=== PATIENT | female | born 1990 ===

== ENCOUNTER 2017-02-04 23:41 | Emergency (ER) | payer BC, MEDICAID, OTHER ==
[2017-02-04 23:42] VITALS: BMI 20.9
[2017-02-04 23:58] VITALS: BP 106/62; PULSE 98; RESP 16; TEMP 98.2; O2SAT 100
--- NOTE | 2017-02-05 00:26 | ED PDOC ---
- ECG O2 Sat by Pulse Oximetry: 100
--- NOTE | 2017-02-05 00:32 | ED PDOC ---
HPI: Psych/Substance Abuse Time Seen by Provider: 02/05/17 00:02 Chief Complaint (Nursing): Psychiatric Evaluation Chief Complaint (Provider): Depression History Per: Patient History/Exam Limitations: no limitations Onset/Duration Of Symptoms: Worse Since (2x weeks), Other (patient has had depression for many years, has worsened in the past 2x weeks) Current Symptoms Are (Timing): Still Present Suicide/Self Injury Attempted (Context): None Severity: Moderate Associated Symptoms: Anxiety, Depression, Suicidal Thoughts (fleeting). denies : Suicidal Plan Additional Complaint(s): 26 year old female with a pertinent medical history of depression and UTIs presents to the ED with complaints of depression that she has had for many years , but worsened in the past 2x weeks due to many new life events including her young daughter needing leg surgery, her mother being sick, and marital issues. She reports having fleeting suicidal thoughts, but no plan and does not want to commit suicide because of her daughter. She reports that she has taken medication for her depression in the past, but is not on any right now. She denies drinking alcohol, ingesting drugs, and having any hallucinations. She has been admitted to the hospital for depression in the past. PMD: Not provided. Past Medical History Reviewed: Historical Data, Nursing Documentation, Vital Signs Vital Signs: Last Vital Signs Temp 98.2 F 02/04/17 23:51 Pulse 98 H 02/04/17 23:51 Resp 16 02/04/17 23:51 BP 106/62 02/04/17 23:51 Pulse Ox 100 02/05/17 00:26 - Medical History PMH: Asthma, Depression Denies: Diabetes, Hepatitis, HIV, HTN, Chronic Kidney Disease, Seizures, Sexually Transmitted Disease - Surgical History Surgical History: No Surg Hx - Family History Family History: States: Other - Living Arrangements Living Arrangements: With Family - Social History Current smoker - smoking cessation education provided: Yes Alcohol: None Drugs: Denies - Immunization History Hx Tetanus Toxoid Vaccination: No Hx Influenza Vaccination: No Hx Pneumococcal Vaccination: No - Home Medications Home Medications: Ambulatory Orders Medication Instructions Recorded Ibuprofen [Motrin] 600 mg PO Q6H PRN #20 tab 01/08/17 - Allergies Allergies/Adverse Reactions: Allergies Allergy/AdvReac Type Severity Reaction Status Date / Time morphine Allergy RASH Verified 02/04/17 23:51 Review of Systems ROS Statement: Except As Marked, All Systems Reviewed And Found Negative Psych: Positive for: Anxiety, Depression, Suicidal ideation (no plan). Negative for: Other (denies having hallucinations.) Physical Exam - Reviewed Nursing Documentation Reviewed: Yes Vital Signs Reviewed: Yes - Physical Exam Appears: Positive for: Well, Non-toxic, In Acute Distress (mild psychiatric distress) Head Exam: Positive for: ATRAUMATIC, NORMOCEPHALIC Skin: Positive for: Normal Color, Warm, Dry (papular lesions on face consistent with moderate acne) Eye Exam: Positive for: Normal appearance, PERRL Neck: Positive for: Normal, Painless ROM, Supple Cardiovascular/Chest: Positive for: Regular Rate, Rhythm, Chest Non Tender Respiratory: Positive for: Normal Breath Sounds. Negative for: Respiratory Distress Gastrointestinal/Abdominal: Positive for: Normal Exam, Soft. Negative for: Tenderness Back: Positive for: Normal Inspection Extremity: Positive for: Normal ROM. Negative for: Deformity, Swelling Neurologic/Psych: Positive for: Alert, Oriented (3x), Mood/Affect (depressed mood, very anxious affect), Other (pressured speech). Negative for: Motor/ Sensory Deficits - ECG O2 Sat by Pulse Oximetry: 100 (RA) Pulse Ox Interpretation: Normal Medical Decision Making Medical Decision Makin:02 Initial impression: 26 year old female with depression. Initial plan: * Crisis evaluation as ordered * reevaluation Scribe Attestation: Documented by Rosa Marroquin, acting as a scribe for Danyelle Rivas MD. Provider Scribe Attestation: All medical record entries made by the Scribe were at my direction and personally dictated by me. I have reviewed the chart and agree that the record accurately reflects my personal performance of the history, physical exam, medical decision making, and the department course for this patient. I have also personally directed, reviewed, and agree with the discharge instructions and disposition. Disposition - Clinical Impression Clinical Impression: Depression Counseled Patient/Family Regarding: Studies Performed, Diagnosis, Need For Followup - Disposition [facility]] Disposition: Routine/Home Disposition Time: 01:00 Condition: STABLE Instructions: Depression (ED) Print Language: PRYDEINIG
== END 2017-02-05 02:23 | disposition home or self-care (01) ==
LOC: H.ER 23:41
DX: F32.89 Other specified depressive episodes (principal)

== ENCOUNTER 2017-02-22 20:56 | Emergency (ER) | payer SELFPAY ==
[2017-02-22 20:56] VITALS: BMI 20.9
[2017-02-22 21:01] VITALS: BP 103/61; PULSE 91; RESP 16; TEMP 98.3; O2SAT 100
[2017-02-22 21:46] LABS: BARBITURATES, UR NEGATIVE (NEGATIVE); BENZODIAZEPINES, UR NEGATIVE (NEGATIVE); OPIATES, UR NEGATIVE (NEGATIVE); PHENCYCLIDINE, UR NEGATIVE (NEGATIVE)
--- NOTE | 2017-02-22 22:00 | ED PDOC ---
HPI: Psych/Substance Abuse Time Seen by Provider: 02/22/17 21:06 Chief Complaint (Nursing): Psychiatric Evaluation Chief Complaint (Provider): Psychiatric Evaluation History Per: Patient History/Exam Limitations: no limitations Onset/Duration Of Symptoms: Days Current Symptoms Are (Timing): Still Present Associated Symptoms: Depression. denies: Suicidal Thoughts Additional Complaint(s): 26 y/o female presents to the emergency department with a complaint of feeling depressed and stressed because of her sick sister for a while now. Reports it is affecting her daily life because she is not eating well and has a disinterest in many things. Denies taking medications for depression, drug use, suicidal, or homicidal ideation. Past Medical History Reviewed: Historical Data, Nursing Documentation, Vital Signs Vital Signs: Last Vital Signs Temp 98.3 F 02/22/17 20:58 Pulse 91 H 02/22/17 20:58 Resp 16 02/22/17 20:58 BP 103/61 02/22/17 20:58 Pulse Ox 100 02/22/17 20:58 - Medical History PMH: Asthma, Depression Denies: Diabetes, Hepatitis, HIV, HTN, Chronic Kidney Disease, Seizures, Sexually Transmitted Disease - Surgical History Surgical History: No Surg Hx - Family History Family History: States: Unknown Family Hx - Social History Alcohol: None Drugs: Denies - Immunization History Hx Tetanus Toxoid Vaccination: No Hx Influenza Vaccination: No Hx Pneumococcal Vaccination: No - Allergies Allergies/Adverse Reactions: Allergies Allergy/AdvReac Type Severity Reaction Status Date / Time morphine Allergy RASH Verified 02/22/17 20:57 Review of Systems ROS Statement: Except As Marked, All Systems Reviewed And Found Negative Constitutional: Positive for: Other (Not eating well and has a disinterest in life) Psych: Positive for: Depression. Negative for: Suicidal ideation (or homicidal ideation), Other (Drug use) Physical Exam - Reviewed Nursing Documentation Reviewed: Yes Vital Signs Reviewed: Yes - Physical Exam Appears: Positive for: Non-toxic, No Acute Distress Head Exam: Positive for: ATRAUMATIC, NORMAL INSPECTION, NORMOCEPHALIC Skin: Positive for: Normal Color (With diffuse acne scarring), Warm, Dry Eye Exam: Positive for: Normal appearance. Negative for: Conjunctival injection ENT: Positive for: Normal ENT Inspection. Negative for: Pharyngeal Erythema Neck: Positive for: Normal, Supple Cardiovascular/Chest: Positive for: Regular Rate, Rhythm, Chest Non Tender. Negative for: Murmur Respiratory: Positive for: Normal Breath Sounds. Negative for: Accessory Muscle Use, Respiratory Distress Gastrointestinal/Abdominal: Positive for: Normal Exam, Soft. Negative for: Tenderness Back: Positive for: Normal Inspection. Negative for: L CVA Tenderness, R CVA Tenderness Extremity: Positive for: Normal ROM. Negative for: Pedal Edema Neurologic/Psych: Positive for: Alert, Oriented, Mood/Affect (Withdrawn and depressed appearing) - ECG O2 Sat by Pulse Oximetry: 100 (RA) Pulse Ox Interpretation: Normal Medical Decision Making Medical Decision Making: Time: 21:13 Initial impression: Depression Initial plan: --UPreg --Crisis Evaluation As Ordered --Reevaluation 1130PM: Pt. cleared by Crisis w/ dx of depression under Dr. Woodard. Scribe Attestation: Documented by Shayna Guzmán, acting as a scribe for Guicho Damon MD. Provider Scribe Attestation: All medical record entries made by the Scribe were at my direction and personally dictated by me. I have reviewed the chart and agree that the record accurately reflects my personal performance of the history, physical exam, medical decision making, and the department course for this patient. I have also personally directed, reviewed, and agree with the discharge instructions and disposition. Disposition - Clinical Impression Clinical Impression: Depressed - Patient ED Disposition Is Patient to be Admitted: No - Disposition [facility] Disposition: Routine/Home Disposition Time: 23:45 Condition: STABLE Instructions: Depression (ED), Suicide Prevention for Adults (DC) Print Language: DOMINICAN
== END 2017-02-23 00:07 | disposition home or self-care (01) ==
LOC: H.ER 20:56
DX: F32.9 Major depressive disorder, single episode, unspecified (principal)
CPT/HCPCS: 81025; 99282; G0480

== ENCOUNTER 2017-10-04 01:21 | Emergency (ER) | payer BC, MEDICAID, OTHER ==
[2017-10-04 01:21] VITALS: BMI 20.9
[2017-10-04 01:34] VITALS: BP 91/55; PULSE 86; RESP 16; TEMP 98.2; O2SAT 100
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
== END 2017-10-04 03:00 | disposition home or self-care (01) ==
LOC: H.ER 01:21
DX: Z00.00 Encounter for general adult medical examination without abnormal findings (principal); F31.9 Bipolar disorder, unspecified; F41.9 Anxiety disorder, unspecified; J45.909 Unspecified asthma, uncomplicated; M79.7 Fibromyalgia

== ENCOUNTER 2018-01-25 20:04 | Emergency (ER) | payer BC, MEDICAID, OTHER ==
[2018-01-25 20:05] VITALS: BMI 20.9
[2018-01-25 20:36] VITALS: RESP 16
[2018-01-25] MEDS ORDERED: Sodium Chloride 0.9% 1,000 ML IV STA (21:37)
[2018-01-25 21:57] LABS: BASO % 0.3 % (0.0-2.0); EOS # 0.2 K/uL (0.0-0.7); EOS % 1.4 % (0.0-4.0); HEMOGLOBIN 12.3 g/dL (12.0-16.0); LYMPH # 3.1 K/uL (1.0-4.3); LYMPH % 23.5 % (20.0-40.0); MEAN CELL VOLUME 88.4 fl (81.0-99.0); MEAN CORPUSCULAR HEMOGLOBIN 29.2 pg (27.0-31.0); MEAN CORPUSCULAR HGB CONC 33.1 g/dL (33.0-37.0); MEAN PLATELET VOLUME 8.8 fl (7.2-11.7); MONO # 0.8 K/uL (0.0-0.8); MONO % 6.2 % (0.0-10.0); NEUT # 9.2 K/uL (1.8-7.0); NEUT % 68.6 % (50.0-75.0); NRBC % 0.1 % (0.0-0.0); RBC 4.22 Mil/uL (3.80-5.20); RED CELL DISTRIBUTION WIDTH 13.9 % (11.5-14.5); WHITE BLOOD COUNT 13.4 K/uL (4.8-10.8)
[2018-01-25 22:07] LABS: ALBUMIN 4.1 g/dL (3.5-5.0); ALT/SGPT 23 U/L (9-52); AST/SGOT 31 U/L (14-36); BLOOD UREA NITROGEN 16 mg/dl (7-17); CALCIUM 9.4 mg/dL (8.4-10.2); GFR AFRICAN-AMERICAN > 60; GFR NON-AFRICAN AMERICAN > 60
--- NOTE | 2018-01-25 22:28 | ED PDOC ---
"HPI: Abdomen Time Seen by Provider: 01/25/18 20:10 Chief Complaint (Nursing): Abdominal Pain Chief Complaint (Provider): Abdominal Pain History Per: Patient History/Exam Limitations: no limitations Onset/Duration Of Symptoms: Days (x3) Current Symptoms Are (Timing): Still Present Additional Complaint(s): 27 year old female with a past medical history of depression, fibromyalgia, bipolar disorder presents to the ED complaining of suprapubic pain and dysuria, onset three months. Patient states she has been taking antibiotics on and off. In the last three days, patient has been experiencing nausea, vomiting, and subjective fever. Denies hematuria. PMD: None Provided Past Medical History Reviewed: Historical Data, Nursing Documentation, Vital Signs Vital Signs: Last Vital Signs Temp 98.6 F 01/26/18 03:19 Pulse 76 01/26/18 03:19 Resp 16 01/26/18 03:19 BP 100/52 L 01/26/18 03:19 Pulse Ox 99 01/29/18 05:14 - Medical History PMH: Anxiety, Asthma, Bipolar Disorder, Depression, Fibromyalgia, Schizophrenia Denies: HIV, HTN, Chronic Kidney Disease, Seizures, Sexually Transmitted Disease - Surgical History Surgical History: No Surg Hx - Family History Family History: States: Unknown Family Hx - Social History Current smoker - smoking cessation education provided: Yes - Immunization History Hx Tetanus Toxoid Vaccination: No Hx Influenza Vaccination: No Hx Pneumococcal Vaccination: No - Home Medications Home Medications: Ambulatory Orders Medication Instructions Recorded FLUoxetine [Fluoxetine HCl] 20 mg PO DAILY 10/29/17 Ibuprofen [Motrin Tab] 800 mg PO Q12 01/14/18 Nitrofurantoin Macrocrystals 100 mg PO BID #14 cap 01/26/18 [Macrobid] - Allergies Allergies/Adverse Reactions: Allergies Allergy/AdvReac Type Severity Reaction Status Date / Time morphine Allergy RASH Verified 01/14/18 22:46 Review of Systems ROS Statement: Except As Marked, All Systems Reviewed And Found Negative Constitutional: Positive for: Fever (subjective) Gastrointestinal: Positive for: Nausea, Vomiting, Abdominal Pain (suprapubic) Genitourinary Female: Positive for: Dysuria. Negative for: Hematuria Physical Exam - Reviewed Nursing Documentation Reviewed: Yes Vital Signs Reviewed: Yes - Physical Exam Appears: Positive for: Non-toxic, No Acute Distress Head Exam: Positive for: ATRAUMATIC, NORMOCEPHALIC Skin: Positive for: Normal Color, Warm, Dry Eye Exam: Positive for: Normal appearance, EOMI, PERRL ENT: Positive for: Normal ENT Inspection Neck: Positive for: Normal, Painless ROM, Supple Cardiovascular/Chest: Positive for: Regular Rate, Rhythm. Negative for: Murmur Respiratory: Positive for: Normal Breath Sounds Gastrointestinal/Abdominal: Positive for: Normal Exam, Soft, Tenderness (mild suprapubic tenderness) Back: Positive for: Normal Inspection. Negative for: L CVA Tenderness, R CVA Tenderness, Vertebral Tenderness Extremity: Positive for: Normal ROM. Negative for: Pedal Edema, Deformity Neurologic/Psych: Positive for: Alert, Oriented - Laboratory Results Result Diagrams: 01/25/18 21:50 01/25/18 21:50 - ECG O2 Sat by Pulse Oximetry: 99 (RA) Pulse Ox Interpretation: Normal Medical Decision Making Medical Decision Making: Time: 2149 Plan: -- Beta HCG, Quantitative -- CMP -- CBC with differentials -- Sodium Chloride IV 999 mls/hr -- Toradol 30 mg IV -- Zofran Inj 4 mg IV -- Urine C&S -- Urinalysis Time: 1:14 --CT abd and pelvis Time: 1:30 --Patient reports feeling better. Noted to have UTI, last urine culture was sensitive to macrobids. Time: 2:39 FINDINGS: Lung bases: Unremarkable. No mass. No consolidation. ABDOMEN: Liver: Unremarkable. Gallbladder and bile ducts: Unremarkable. No calcified stones. No ductal dilation. Pancreas: Unremarkable. No ductal dilation. Spleen: Unremarkable. No splenomegaly. Adrenals: Unremarkable. No mass. Kidneys and ureters: Unremarkable. No obstructing or nonobstructing stones. No hydronephrosis. Stomach and bowel: Unremarkable. No obstruction. No mucosal thickening. PELVIS: Appendix: No findings to suggest acute appendicitis. Bladder: Unremarkable. No stones. Reproductive: Unremarkable as visualized. ABDOMEN and PELVIS: Intraperitoneal space: Small free fluid in the pelvis. No free air. Bones/joints: No acute fracture. No dislocation. Soft tissues: Unremarkable. Vasculature: Unremarkable. No abdominal aortic aneurysm. ISAEL MONGE | Preliminary Radiology Report ALTERNATIVE ENERGY ENGINEER (QA) DISCREPANCY? If there is a discrepancy between the preliminary and final interpretation, please notify [facility] via [email or web address]. If you do not have access to our QA portal, call our QA team at [phone] CONFIDENTIALITY STATEMENT This report is intended only for the use of the referring physician, and only in accordance with law, If you received this in error, call [phone] Page 2 of 2 Lymph nodes: Unremarkable. No enlarged lymph nodes. IMPRESSION: Small free fluid in the pelvis. No acute obstructive or inflammatory process in the abdomen or pelvis. pt aware of results of CT. stable for discharge home. Scribe Attestation: Documented by Reyna Bunch, acting as a scribe for Dr. Paul Baptiste. Provider Scribe Attestation: All medical record entries made by the Scribe were at my direction and personally dictated by me. I have reviewed the chart and agree that the record accurately reflects my personal performance of the history, physical exam, medical decision making, and the department course for this patient. I have also personally directed, reviewed and agree with the discharge instructions and disposition. Disposition - Clinical Impression Clinical Impression: UTI (lower urinary tract infection) - Patient ED Disposition Is Patient to be Admitted: No Counseled Patient/Family Regarding: Studies Performed, Need For Followup - Disposition Disposition: Routine/Home Disposition Time: 02:00 Condition: IMPROVED Additional Instructions: follow up with your primary doctor and with the specialist for cystoscopy return to the ED with any worsening or concerning symptoms Prescriptions: Nitrofurantoin Macrocrystals [Macrobid] 100 mg PO BID #14 cap Instructions: Urinary Tract Infection, Adult (DC) Forms: [facility] (Estonian) Print Language: NIUEAN"
[2018-01-25 23:31] LABS: SQUAMOUS EPITHIAL 72 /hpf (0-5); URINE BILIRUBIN NEGATIVE (NEGATIVE); URINE BLOOD NEGATIVE (NEGATIVE); URINE CLARITY CLOUDY (Clear); URINE COLOR YELLOW (YELLOW); URINE GLUCOSE (UA) NEG (Normal); URINE LEUKOCYTE ESTERASE MOD Leu/uL (Negative); URINE PROTEIN 30 mg/dL (NEGATIVE); URINE UROBILINOGEN 0.2-1.0 mg/dL (0.2-1.0)
[2018-01-26 03:20] VITALS: BP 100/52; PULSE 76; TEMP 98.6
--- NOTE | 2018-01-26 10:22 | CT ---
PROCEDURE: CT Abdomen and Pelvis without intravenous contrast HISTORY: Left flank and abdominal pain. COMPARISON: 10/30/2015 CT abdomen and pelvis TECHNIQUE: Unenhanced study. Neither oral nor intravenous contrast administered. Radiation dose: Total exam DLP = 290.47 mGy-cm. This CT exam was performed using one or more of the following dose reduction techniques: Automated exposure control, adjustment of the mA and/or kV according to patient size, and/or use of iterative reconstruction technique. FINDINGS: LOWER THORAX: Unremarkable. LIVER: Unremarkable. No gross lesion or ductal dilatation. GALLBLADDER AND BILE DUCTS: Unremarkable. PANCREAS: Unremarkable. No gross lesion or ductal dilatation. SPLEEN: Unremarkable. ADRENALS: Unremarkable. No mass. KIDNEYS AND URETERS: Unremarkable. No hydronephrosis. No solid mass. VASCULATURE: Unremarkable. No aortic aneurysm. BOWEL: Unremarkable. No obstruction. No gross mural thickening. APPENDIX: Unremarkable. Normal appendix. PERITONEUM: Trace free fluid identified in the pelvis/cul de sac. LYMPH NODES: Unremarkable. No enlarged lymph nodes. BLADDER: Unremarkable. REPRODUCTIVE: Unremarkable. BONES: No acute fracture. OTHER FINDINGS: None. IMPRESSION: No significant or acute findings to account for/ related to the clinical presentation. Additional benign and/or incidental findings described above. Concordant results (preliminary interpretation) provided by [facility]. Procedure Completed: 01:38 Preliminary ([facility]) Report: Dictated and Authenticated: 02:39 Final Interpretation: 10:20
[2018-01-29 05:14] VITALS: O2SAT 99
== END 2018-01-26 03:17 | disposition home or self-care (01) ==
LOC: H.ER 20:04
DX: N39.0 Urinary tract infection, site not specified (principal); F20.9 Schizophrenia, unspecified; F31.9 Bipolar disorder, unspecified; M79.7 Fibromyalgia
CPT/HCPCS: 74176; 80053; 81003; 81025; 84702; 85025; 87086; 96360; 99284; J1885; J2405; J7030

== ENCOUNTER 2018-02-01 16:05 | Emergency (ER) | payer BC ==
[2018-02-01 16:06] VITALS: BMI 20.9
--- NOTE | 2018-02-01 17:38 | ED PDOC ---
HPI: Abdomen Time Seen by Provider: 02/01/18 16:49 Chief Complaint (Nursing): GI Problem Chief Complaint (Provider): back pain History Per: Patient (27 y/o female here with ongoing lower back pain. Patient denies any dysuria/urinary frequency. Denies any fevers/chills. States she was last seen 2 weeks ago and written rx for macrobid but did not complete. Concerned she has had progressing kidney infection.) Past Medical History Reviewed: Historical Data, Nursing Documentation, Vital Signs Vital Signs: Last Vital Signs Temp 97.9 F 02/01/18 16:15 Pulse 78 02/01/18 16:15 Resp 18 02/01/18 16:15 BP 93/57 L 02/01/18 16:15 Pulse Ox 99 02/01/18 16:15 - Medical History PMH: Anxiety, Asthma, Bipolar Disorder, Depression, Fibromyalgia, Schizophrenia Denies: HIV, HTN, Chronic Kidney Disease, Seizures, Sexually Transmitted Disease - Family History Family History: States: Unknown Family Hx - Immunization History Hx Tetanus Toxoid Vaccination: No Hx Influenza Vaccination: No Hx Pneumococcal Vaccination: No - Home Medications Home Medications: Ambulatory Orders Medication Instructions Recorded FLUoxetine [Fluoxetine HCl] 20 mg PO DAILY 10/29/17 Ibuprofen [Motrin Tab] 800 mg PO Q12 01/14/18 Nitrofurantoin Macrocrystals 100 mg PO BID #14 cap 01/26/18 [Macrobid] Naproxen 375 mg PO Q8 PRN #21 tablet 02/01/18 - Allergies Allergies/Adverse Reactions: Allergies Allergy/AdvReac Type Severity Reaction Status Date / Time morphine Allergy RASH Verified 02/01/18 16:14 Review of Systems ROS Statement: Except As Marked, All Systems Reviewed And Found Negative Physical Exam - Reviewed Nursing Documentation Reviewed: Yes Vital Signs Reviewed: Yes - Physical Exam Appears: Positive for: Well, Non-toxic, No Acute Distress Head Exam: Positive for: ATRAUMATIC, NORMAL INSPECTION, NORMOCEPHALIC Skin: Positive for: Normal Color, Warm, DRY Eye Exam: Positive for: EOMI, Normal appearance, PERRL ENT: Positive for: Normal ENT Inspection Neck: Positive for: Normal, Painless ROM Cardiovascular/Chest: Positive for: Regular Rate, Rhythm Respiratory: Positive for: CNT, Normal Breath Sounds Gastrointestinal/Abdominal: Positive for: Normal Exam, Soft Back: Positive for: Normal Inspection Extremity: Positive for: Normal ROM Neurologic/Psych: Positive for: Alert, Oriented - Laboratory Results Urine POC: Negative Urine dip results: Positive for: Leukocyte Esterase (trace), Blood (trace). Negative for: Nitrate, Ketones, Glucose, Bilirubin - ECG O2 Sat by Pulse Oximetry: 99 - Progress ED Course And Treament: The urine cx results from last visit demonstrate no growth. Will await cx results prior to placing on antibiotics. Disposition - Clinical Impression Clinical Impression: Low back strain - Patient ED Disposition Is Patient to be Admitted: No - Disposition Referrals: [facility] [Outside] Disposition: Routine/Home Disposition Time: 17:39 Condition: FAIR Prescriptions: Naproxen 375 mg PO Q8 PRN #21 tablet PRN Reason: Pain, Moderate (4-7) Instructions: Low Back Pain in Adults Forms: [facility] ED School/Work Excuse Print Language: GREEK
[2018-02-01 18:07] VITALS: BP 100/62; PULSE 80; RESP 16; TEMP 97.7; O2SAT 100
== END 2018-02-01 18:05 | disposition home or self-care (01) ==
LOC: H.ER 16:05
DX: M54.5 Low back pain (principal)

== ENCOUNTER 2018-02-20 19:08 | Inpatient (IN) | payer BC ==
[2018-02-20 19:09] VITALS: BMI 20.9
[2018-02-20 19:50] VITALS: O2SAT 100
--- NOTE | 2018-02-20 20:02 | ED PDOC ---
HPI: Psych/Substance Abuse Time Seen by Provider: 02/20/18 19:51 Chief Complaint (Nursing): Psychiatric Evaluation Chief Complaint (Provider): crissi eval History Per: Patient Additional Complaint(s): 27-year-old female presents for crisis evaluation. Patient has been contacting her [facility] fine unhairer for the past 2 weeks stating she is feeling suicidal with no plan. Patient refused to go to [facility] a few days ago for treatment but called her fine unhairer today and stated that she wanted to come to the hospital for evaluation today. Upon arrival patient feels suicidal but does not have plan. She states she has been non-compliant with lexapro and risperdal for the past month. She denies any alcohol or drug use. Past Medical History Reviewed: Historical Data, Nursing Documentation, Vital Signs Vital Signs: Last Vital Signs Temp 98.5 F 02/20/18 19:46 Pulse 92 H 02/20/18 19:46 Resp 16 02/20/18 19:46 BP 105/69 02/20/18 19:46 Pulse Ox 100 02/20/18 19:46 - Medical History PMH: Anxiety, Asthma, Bipolar Disorder, Depression, Fibromyalgia, Schizophrenia - Surgical History Other surgeries: cystoscopy - Family History Family History: States: No Known Family Hx - Living Arrangements Living Arrangements: With Family - Social History Current smoker - smoking cessation education provided: Yes Alcohol: None Drugs: Denies - Home Medications Home Medications: Ambulatory Orders Medication Instructions Recorded FLUoxetine [Fluoxetine HCl] 20 mg PO DAILY 10/29/17 Ibuprofen [Motrin Tab] 800 mg PO Q12 01/14/18 Nitrofurantoin Macrocrystals 100 mg PO BID #14 cap 01/26/18 [Macrobid] Naproxen 375 mg PO Q8 PRN #21 tablet 02/01/18 Cephalexin [Keflex] 500 mg PO QID #28 capsule 02/09/18 - Allergies Allergies/Adverse Reactions: Allergies Allergy/AdvReac Type Severity Reaction Status Date / Time morphine Allergy RASH Verified 02/20/18 19:46 Review of Systems ROS Statement: Except As Marked, All Systems Reviewed And Found Negative Psych: Positive for: Suicidal ideation (with no plan) Physical Exam - Reviewed Nursing Documentation Reviewed: Yes Vital Signs Reviewed: Yes - Physical Exam Appears: Positive for: Well, Non-toxic, No Acute Distress Skin: Positive for: Normal Color. Negative for: Rash Eye Exam: Positive for: Normal appearance Cardiovascular/Chest: Positive for: Regular Rate, Rhythm Respiratory: Positive for: Normal Breath Sounds. Negative for: Wheezing, Respiratory Distress Extremity: Positive for: Normal ROM Neurologic/Psych: Positive for: Alert, Oriented, Mood/Affect (flat), Gait - Laboratory Results Result Diagrams: 02/20/18 21:30 02/20/18 21:30 Urine POC: Negative - ECG O2 Sat by Pulse Oximetry: 100 Pulse Ox Interpretation: Normal - Other Rad CXR X-Ray: Interpreted by Me, Viewed By Me X-Ray Interpretation: no acute finding Medical Decision Making Medical Decision Makin27 year old here for crisis eval Plan: 1:1 observation Crisis eval CBC CMP BAL UDS UA CXR As per crisis counselor and psychiatrist loan services professional, Dr. Mccullough, patient does meet criteria for admission. Patient agrees to stay and signed himself in. Patient is medically stable for psychiatric admission. Disposition - Clinical Impression Clinical Impression: Depression - Patient ED Disposition Is Patient to be Admitted: Yes - Disposition Disposition Time: 22:05 Condition: FAIR Forms: [employer] ([place]) - Pt Status Changed To: Hospital Disposition Of: Inpatient - Admit Certification Admit to Inpatient:: After my assessment, the patient will require hospitalization for at least two midnights. This is because of the severity of symptoms shown, intensity of services needed, and/or the medical risk in this patient being treated as an outpatient.
[2018-02-20 21:37] LABS: BASO % 0.6 % (0.0-2.0); EOS # 0.1 K/uL (0.0-0.7); EOS % 0.9 % (0.0-4.0); HEMOGLOBIN 13.2 g/dL (12.0-16.0); LYMPH # 2.4 K/uL (1.0-4.3); LYMPH % 28.8 % (20.0-40.0); MEAN CELL VOLUME 88.3 fl (81.0-99.0); MEAN CORPUSCULAR HEMOGLOBIN 29.2 pg (27.0-31.0); MEAN CORPUSCULAR HGB CONC 33.1 g/dL (33.0-37.0); MEAN PLATELET VOLUME 9.2 fl (7.2-11.7); MONO # 0.6 K/uL (0.0-0.8); MONO % 6.6 % (0.0-10.0); NEUT # 5.3 K/uL (1.8-7.0); NEUT % 63.1 % (50.0-75.0); RBC 4.52 Mil/uL (3.80-5.20); RED CELL DISTRIBUTION WIDTH 13.7 % (11.5-14.5); WHITE BLOOD COUNT 8.4 K/uL (4.8-10.8)
[2018-02-20 21:53] LABS: ALBUMIN 4.6 g/dL (3.5-5.0); ALT/SGPT 17 U/L (9-52); AST/SGOT 24 U/L (14-36); BLOOD UREA NITROGEN 13 mg/dl (7-17); CALCIUM 9.9 mg/dL (8.4-10.2); GFR AFRICAN-AMERICAN > 60; GFR NON-AFRICAN AMERICAN > 60
[2018-02-20 22:38] LABS: SQUAMOUS EPITHIAL 4 /hpf (0-5); URINE BACTERIA OCC (<OCC); URINE BILIRUBIN NEGATIVE (NEGATIVE); URINE BLOOD SMALL (NEGATIVE); URINE CLARITY CLOUDY (Clear); URINE COLOR YELLOW (YELLOW); URINE GLUCOSE (UA) NEG (Normal); URINE LEUKOCYTE ESTERASE TRACE Leu/uL (Negative); URINE PROTEIN NEGATIVE (NEGATIVE); URINE UROBILINOGEN 0.2-1.0 mg/dL (0.2-1.0)
[2018-02-20 22:50] LABS: BARBITURATES, UR NEGATIVE (NEGATIVE); BENZODIAZEPINES, UR NEGATIVE (NEGATIVE); OPIATES, UR NEGATIVE (NEGATIVE); PHENCYCLIDINE, UR NEGATIVE (NEGATIVE)
[2018-02-20] MEDS ORDERED: DiphenhydrAMINE 50 mg/ml Inj IM PRN (23:13)
[2018-02-20] MEDS ORDERED: Magnesium Hydroxide Susp 30 ml UD PO PRN (23:13)
--- NOTE | 2018-02-20 23:29 | PCM.BM ---
<Ivan Heller - Last Filed: 02/20/18 23:22> Treatment Plan Problems - Problems identified on initial assessmt Hopelessness/Helplessness Date Initiated: 02/20/18 Time Initiated: 23:23 Assessment reference: NA Status: Active Medication nonadherence Date Initiated: 02/20/18 Time Initiated: 23:23 Assessment reference: NA Status: Active Treatment assets and liabiliti Patient Assests: cooperative, physically healthy, negotiates basic needs, cognitively intact Patient Liabilities: relationship conflicts - Milieu Protocol Maintain good personal hygiene: daily Encourage regular showers, daily Remind patient to perform daily oral care, daily Assist patient to perform ADL's Conduct patient checks and document Observation sheet: Q15 minutes Maintain personal safety: every shift Educate patient to report safety concerns to staff, every shift Monitor environment for contraband/sharps Medication safety: Monitor for expected outcome, potential side effects: every shift, Assess barriers to learning: every shift, Assess readiness for medication education: every shift <Ida Ruiz - Last Filed: 02/22/18 16:26> Treatment assets and liabiliti Patient Assests: adapts well, cooperative, educated, motivated, resourceful, ADL independent, negotiates basic needs, good past tx response, cognitively intact Patient Liabilities: live alone (unstable housing as of 03/2018), financial problems (financially supported by daughters father/limited welfare resources), poor support system, relationship conflicts, medical problems Family Contact Family involvement: Famliy/SO not involved Family contact: Patient declines to allow family contact at present - Outside Agency Agency 1 Care involvment: Following patient during stay, Information-sharing, Other Agency contact name: Barby KasieLenny [place] [facility]) Agency contact number: ([phone]) - Goals for Treatment Patient goals for treatment: Patient to continue stabilization on 3NP through medication management and group/supportive therapy to address sxs of depression , improve sleep and organization of thoughts, decrease AH/VH and eliminate SI. Patient to be encouraged to attend groups regularly to promote self-awareness, reality-testing, and improve insight, compliance, coping skills and self- esteem. Patient to be provided with referral for appropriate level of aftercare to reduce risk of future hospitalizations and ensure safety in the community. Discharge/Continuing Care - Education Needs Education Needs: Patient Medication, Patient Diagnosis/Disease Process, Patient Coping Skills, Patient Anger Management skills, Patient Community resources, Patient Aftercare Safety Plan - Discharge Discharge Criteria: Tolerates medication w/o severe side effects, Free of Suicidal thoughts, Normal sleep pattern, Ability to care for self, Reduction of target symptoms (AH/VH, sleep disturbances, sxs of da) Discharge to:: Home, Other <Lacey Mccullough - Last Filed: 02/23/18 11:17> - Diagnosis (1) Bipolar disorder with psychotic features Status: Acute Interventions: Medication management, Individual and group therapy, Psychoeducation 02/23/18 11:18 <Jimmy Goldman - Last Filed: 02/23/18 15:27> Discharge/Continuing Care - Education Needs Education Needs: Patient Medication, Patient Diagnosis/Disease Process, Patient Coping Skills, Patient Anger Management skills, Patient Community resources, Patient Aftercare Safety Plan - Discharge Discharge Criteria: Tolerates medication w/o severe side effects, Free of paranoid thoughts, Free of agitation, Normal sleep pattern, No longer exhibiting s/s of withdrawal Discharge to:: Home - Treatment Team Participation Patient/Family/SO Statement: 02/23/18 15:23 Pt met with in team and she was cooperative and behaviorally controlled. Pt reported that she feels good and would like to leave as she denied any and all psychiatric symptoms. Pt reported that she needs to leave as soon as possible because she needs to care for her daughter. Dr. Mccullough explained that she believes pt requires a week of hospitalization to get the Abilify to an appropriate level, and if pt wishes to leave she can sign a [address] Mccullough will refer to [facility] screening. Screening process explained to pt in her [place] language. Discussed with Family/SO: No Was Patient/Family/SO present at Treatment Team Meeting: Yes
--- NOTE | 2018-02-21 10:25 | RAD ---
Date of service: 02/20/2018 HISTORY: Clearance COMPARISON: No prior. FINDINGS: LUNGS: No active pulmonary disease. PLEURA: No significant pleural effusion identified, no pneumothorax apparent. CARDIOVASCULAR: Normal. OSSEOUS STRUCTURES: No significant abnormalities. VISUALIZED UPPER ABDOMEN: Normal. OTHER FINDINGS: None. IMPRESSION: No active disease.
--- NOTE | 2018-02-21 11:54 | PCM.PSYCH ---
Initial Psychiatric Evaluation - Initial Psychiatric Evaluation Type of Admission: Voluntary Legal Status: Capacity Chief Complaint (in patient's own words): "I can't control my mood." Patient's Reaction to Hospitalization: HPI: 27 yo female w/ history of bipolar vs schizoaffective disorder, presented to the ER after she made acute suicidal threats. On interview, patient appears acutely manic, w/ pressured, rapid and tangential speech and flight of ideas. She denies acute suicidal ideation/plan/intent but reports that she does have intermittent thoughts of killing herself and wishes she weren't alive. She reports that she can not sleep at night and does not believe she sleeps more than 3 hours/night. She also reports lack of interest in activities. She reports that her mood fluctuates and she can not control her mood. She reports that she see shadows intermittently and also has auditory hallucinations ; last heard 4 days ago, of laughter, people talking and sounds, such as people walking around. She has been non-compliant with treatment and medications and can not recall what she was previously prescribed. PPHx: H/o bipolar vs schizoaffective disorder; does not recall her past medications; as per chart she has been treated w/ Risperdal and Lexapro in the past. PMHx: As per patient- Lyme Disease, Arthritis, Fibromyalgia, Gout ALL: Morphine (anaphylaxis) SHx: Daughter currently under the care of the father; denies drugs/etoh; smokes 5 cig/day FHx: Sister w/ Bipolar Disorder; Other sister and mother w/ depression and anxiety Current Medications: Active Medications Generic Name Dose Route Start Last Admin Trade Name Bruceq PRN Reason Stop Dose Admin Acetaminophen 650 mg 02/20/18 23:13 Tylenol 325mg Tab PO Q4 PRN pain level 4-7 Al Hydrox/Mg Hydrox/Simethicone 30 ml 02/20/18 23:13 Maalox Plus 30 Ml PO Q4 PRN Dyspepsia Diphenhydramine HCl 50 mg 02/20/18 23:13 Benadryl IM Q6 PRN Extrapyramidal S/S Unable PO Diphenhydramine HCl 50 mg 02/20/18 23:13 Benadryl PO Q6 PRN Extrapyramidal Symptoms Diphenhydramine HCl 50 mg 02/20/18 23:17 02/21/18 00:09 Benadryl PO 50 mg HS PRN Administration Sleep Haloperidol 5 mg 02/20/18 23:13 Haldol PO Q4 PRN Agitation Haloperidol Lactate 5 mg 02/20/18 23:13 Haldol IM Q4 PRN Agitation, Unable to Take PO Lorazepam 1 mg 02/20/18 23:13 Ativan IM Q8 PRN Anxiety/Agitation,Unable PO Lorazepam 1 mg 02/20/18 23:13 Ativan PO Q8 PRN Anxiety/Agitation Magnesium Hydroxide 30 ml 02/20/18 23:13 Milk Of Magnesia PO HS PRN Constipation Past Psychiatric History - Past Psychiatric History Previous Treatment History: Inpatient Pertinent Medical Hx (Current Medical&Sleep Prob, Allergies): Allergies Allergy/AdvReac Type Severity Reaction Status Date / Time morphine Allergy RASH Verified 02/20/18 19:46 No Known Home Med 02/20/18 Review of Systems - Psychiatric Psychiatric: As Per HPI, Abnormal Sleep Pattern, Anhedonia, Anxiety, Auditory Hallucinations, Change in Appetite, Depression, Difficulty Concentrating, Hallucinations, Irritability, Mood Swings, Suicidal Ideation, Visual Hallucinations Mental Status Examination - Personal Presentation Personal Presentation: Looks stated age - Affect Affect: Other (Labile) - Motor Activity Motor Activity: Psychomotor Agitation - Reliability in Providing Information Reliability in Providing Information: Poor, due to alteration in thoughts - Speech Speech: Tangential, Coherent - Mood Mood: Depressed - Formal Thought Process Formal Thought Process: Loosening of associations, Flight of ideas - Hallucinations/Delusions Additional comments: Denies current AH/VH - Obsessions/Compulsions Obsessions: No Compulsions: No - Cognitive Functions Orientation: Person, Place, Situation, Time Sensorium: Alert Estimate of Intelligence: Average Judgement: Imparied, as evidence by: Poor judgement, Imparied, as evidence by: Lack of insight into illness Memory: Recent intact, as evidence by: Ability to recall events of the day - Risk Risk: Suicidal, Diminished functioning - Strength & Assets Inventory Strength & Assets Inventory: Cooperative DSM 5 DX - DSM 5 DSM 5 Diagnosis: Bipolar Disorder w/ Psychotic Features vs Schizoaffective Disorder - Recommended/Plan of Treatment Treatment Recommendations and Plan of Treatment: Bipolar Disorder w/ Psychotic Features vs Schizoaffective Disorder -Admit to psychiatry unit -Individual and group therapy -Start Abilify 10 mg PO Daily; will titrate as clinically indicated -Medicine consult -Nicotine patch -Disposition planning Projected ELOS: 7-14 days Discharge Plan and Discharge Criteria: Discharge when patient is psychiatrically stable - Smoking Cessation Smoking Cessation Initiated: Yes
--- NOTE | 2018-02-21 16:02 | CP.PCM.HP ---
History of Present Illness - History of Present Illness History of Present Illness: This is a 27 year old female with a pmh of Lyme disease, Arthritis, fibromyalgia , gout, presenting to the ED with acute da and suicidal ideation. She is complaining of back pain at the present. C/o anxiety and depression. No other complaints. Present on Admission - Present on Admission Any Indicators Present on Admission: No History of DVT/PE: No History of Uncontrolled Diabetes: No Review of Systems - Review of Systems Review of Systems: A 12 point review of systems was conducted and found to be negative other than what was mentioned in the HPI. Past Patient History - Infectious Disease Hx of Infectious Diseases: None - Tetanus Immunizations Tetanus Immunization: Unknown - Past Medical History & Family History Past Medical History?: Yes - Past Social History Alcohol: None Drugs: Denies - CARDIAC Hx Cardiac Disorders: No - PULMONARY Hx Respiratory Disorders: Yes Hx Asthma: Yes - NEUROLOGICAL Hx Neurological Disorder: No - HEENT Hx HEENT Problems: No - RENAL Hx Chronic Kidney Disease: No - ENDOCRINE/METABOLIC Hx Endocrine Disorders: No - HEMATOLOGICAL/ONCOLOGICAL Hx Blood Disorders: No - INTEGUMENTARY Hx Dermatological Problems: No - MUSCULOSKELETAL/RHEUMATOLOGICAL Hx Arthritis: Yes - GASTROINTESTINAL Hx Gastrointestinal Disorders: No - GENITOURINARY/GYNECOLOGICAL Hx Genitourinary Disorders: No - PSYCHIATRIC Hx Substance Use: No - SURGICAL HISTORY Hx Surgeries: No - ANESTHESIA Hx Anesthesia: No Meds Allergies/Adverse Reactions: Allergies Allergy/AdvReac Type Severity Reaction Status Date / Time morphine Allergy RASH Verified 02/20/18 19:46 Physical Exam - Additional Findings Additional findings: Physical exam: Constitutional- cooperative, awake, alert Head- NCAT, PERRL Eye- PERRL, EOMI ENT- normal exam, MMM. Neck- normal inspection, supple, no JVD Respiratory- CTAB, no wheezes rales rhonchi Cardiovascular- RRR, +S1, +S2 no MRG GI/Abdominal- normal bowel sounds, soft, no mass, no hsm Skin- warm, dry Extremities Exam- normal capillary refill, normal inspection Neurological Exam- alert, awake, oriented Psych- appears anxious, normal affect Results - Vital Signs Recent Vital Signs: Last Vital Signs Temp 97.2 F L 02/21/18 09:22 Pulse 71 02/21/18 09:22 Resp 18 02/21/18 09:22 BP 90/54 L 02/21/18 09:22 Pulse Ox 100 02/20/18 22:55 - Labs Result Diagrams: 02/20/18 21:30 02/20/18 21:30 Labs: Laboratory Results - last 24 hr 02/20/18 02/20/18 02/20/18 21:30 21:30 21:30 WBC 8.4 RBC 4.52 Hgb 13.2 Hct 39.9 MCV 88.3 MCH 29.2 MCHC 33.1 RDW 13.7 Plt Count 243 MPV 9.2 Neut % (Auto) 63.1 Lymph % (Auto) 28.8 [place] % (Auto) 6.6 Eos % (Auto) 0.9 Baso % (Auto) 0.6 Neut # (Auto) 5.3 Lymph # (Auto) 2.4 [place] # (Auto) 0.6 Eos # (Auto) 0.1 Baso # (Auto) 0.0 Sodium 142 Potassium 3.8 Chloride 103 Carbon Dioxide 26 Anion Gap 17 BUN 13 Creatinine 0.7 Est GFR ( Amer) > 60 Est GFR (Non-Af Amer) > 60 Random Glucose 90 Hemoglobin A1c Calcium 9.9 Total Bilirubin 1.8 H AST 24 ALT 17 Alkaline Phosphatase 60 Total Protein 9.0 H Albumin 4.6 Globulin 4.4 H Albumin/Globulin Ratio 1.0 Triglycerides Cholesterol LDL Cholesterol Direct HDL Cholesterol Thyroxine (T4) TSH 3rd Generation Urine Color Urine Clarity Urine pH Ur Specific [place] Urine Protein Urine Glucose (UA) Urine Ketones Urine Blood Urine Nitrate Urine Bilirubin Urine Urobilinogen Ur Leukocyte Esterase Urine RBC (Auto) Urine Microscopic WBC Ur Squamous Epith Cells Urine Bacteria Urine Opiates Screen Negative Urine Methadone Screen Negative Ur Barbiturates Screen Negative Ur Phencyclidine Scrn Negative Ur Amphetamines Screen Negative U Benzodiazepines Scrn Negative U Oth Cocaine Metabols Negative U Cannabinoids Screen Negative Alcohol, Quantitative < 10 02/20/18 02/21/18 02/21/18 21:30 08:25 08:25 WBC RBC Hgb Hct MCV MCH MCHC RDW Plt Count MPV Neut % (Auto) Lymph % (Auto) [place] % (Auto) Eos % (Auto) Baso % (Auto) Neut # (Auto) Lymph # (Auto) [place] # (Auto) Eos # (Auto) Baso # (Auto) Sodium Potassium Chloride Carbon Dioxide Anion Gap BUN Creatinine Est GFR ( Amer) Est GFR (Non-Af Amer) Random Glucose Hemoglobin A1c 5.1 Calcium Total Bilirubin AST ALT Alkaline Phosphatase Total Protein Albumin Globulin Albumin/Globulin Ratio Triglycerides 68 Cholesterol 145 LDL Cholesterol Direct 80 HDL Cholesterol 41 Thyroxine (T4) 10.0 TSH 3rd Generation 2.22 Urine Color Yellow Urine Clarity Cloudy Urine pH 5.0 Ur Specific [place] 1.024 Urine Protein Negative Urine Glucose (UA) Neg Urine Ketones Negative Urine Blood Small Urine Nitrate Positive H Urine Bilirubin Negative Urine Urobilinogen 0.2-1.0 Ur Leukocyte Esterase Trace Urine RBC (Auto) 3 Urine Microscopic WBC 8 H Ur Squamous Epith Cells 4 Urine Bacteria Occ H Urine Opiates Screen Urine Methadone Screen Ur Barbiturates Screen Ur Phencyclidine Scrn Ur Amphetamines Screen U Benzodiazepines Scrn U Oth Cocaine Metabols U Cannabinoids Screen Alcohol, Quantitative Assessment & Plan - Assessment and Plan (Free Text) Plan: This is a 27 year old female with a pmh of Lyme disease, Arthritis, fibromyalgia , gout, presenting to the ED with suicidal ideation and subsequent admission to voluntary inpatient psychiatry. She is complaining of back pain at the present. C/o anxiety and depression. No other complaints. 1) Depression, Anxiety, with suicidal ideation - management as per psychiatry 2) Schizophrenia history - Management as per psychiatry 3) Fibromyalgia with back pain - Start Motrin PRN - chronic
[2018-02-21] MEDS: Alum-Mag Hydrox-Simethicone Susp (30 mL) PO PRN (20:54)
[2018-02-22] MEDS: Alum-Mag Hydrox-Simethicone Susp (30 mL) PO PRN (04:45)
--- NOTE | 2018-02-22 10:56 | PCM.PYCHPN ---
Psychiatric Progress Note - Psychiatric Progress Note Patient seen today, length of contact: Patient evaluated, case discussed with team, chart reviewed Patient Chief Complaint: "I can't control my mood." Problems Identified/Issues Discussed: Patient reports episodes of vomiting and diarrhea. She reports poor sleep and states that last night she had visual hallucinations of people walking in front of her and gardens. She also report auditory hallucinations of people talking. She continues to have rapid and pressured speech. No SI/HI. No adverse effects to Abilify reported. We discussed continued titration of Abilify. Medication Change: Yes (Increase Abilify to 15 mg PO Daily) Medical Record Reviewed: Yes Consults ordered or reviewed: Medicine consult Mental Status Examination - Cognitive Function Orientation: Person, Place, Situation, Time Memory: Intact Attention: WNL Concentration: WNL Association: WN Fund of Knowledge: [facility] Decription of patient's judgement and insights: Poor I/J - Mood Mood: Neutral - Affect Affect: Other (Labile) - Speech Speech: Pressured - Formal Thought Process Formal Thought Process: Hallucinations, Loosening of associations Psychotic Thoughts and Behaviors: +AH/VH last night - Suicidal Ideation Suicidal Ideation: No - Homicidal Ideation Homicidal Ideation: No Goal/Treatment Plan - Goal/Treatment Plan Need for Continued Stay: Remain at risks for inpatient hospitalization, Discharge may exacerbated symptoms Progress Toward Problem(s) and Goals/Treatment Plan: Bipolar Disorder w/ Psychotic Features vs Schizoaffective Disorder -Individual and group therapy -Increase Abilify to 15 mg PO Daily -Medicine consult -Nicotine patch -Disposition planning Estimated Date of D/C: 02/28/18
--- NOTE | 2018-02-23 09:58 | PCM.PYCHPN ---
Psychiatric Progress Note - Psychiatric Progress Note Patient seen today, length of contact: Patient evaluated, case discussed with team, chart reviewed Patient Chief Complaint: "I can't control my mood." Problems Identified/Issues Discussed: Patient denies current nausea or diarrhea. She continues to have rapid and pressured speech. She denies acute AH/VH. She is calmer and more redirectable. She denies acute SI/HI. No adverse effects to Abilify reported. Medication Change: No Medical Record Reviewed: Yes Consults ordered or reviewed: Medicine consult Mental Status Examination - Cognitive Function Orientation: Person, Place, Situation, Time Memory: Intact Attention: WNL Concentration: WNL Association: WNL Fund of Knowledge: [facility] Decription of patient's judgement and insights: Poor I/J - Mood Mood: Neutral - Affect Affect: Other (Labile) - Speech Speech: Pressured - Formal Thought Process Formal Thought Process: Loosening of associations Psychotic Thoughts and Behaviors: Denies acute AH/VH - Suicidal Ideation Suicidal Ideation: No - Homicidal Ideation Homicidal Ideation: No Goal/Treatment Plan - Goal/Treatment Plan Need for Continued Stay: Remain at risks for inpatient hospitalization, Discharge may exacerbated symptoms Progress Toward Problem(s) and Goals/Treatment Plan: Bipolar Disorder w/ Psychotic Features vs Schizoaffective Disorder -Individual and group therapy -Continue Abilify 15 mg PO Daily -Medicine consult -Nicotine patch -Disposition planning Estimated Date of D/C: 02/28/18
--- NOTE | 2018-02-24 09:54 | PCM.PYCHPN ---
Psychiatric Progress Note - Psychiatric Progress Note Patient seen today, length of contact: Patient evaluated, case discussed with team, chart reviewed Patient Chief Complaint: "I'm okay" Problems Identified/Issues Discussed: Patient submitted a 48 hour letter, was screened for involuntary admission and not accepted. She retracted the letter and is agreeable to staying in the hospital for a few more days. She is calmer and more redirectable w/ less tangential speech. She denies acute AH/VH. She denies acute SI/HI. No adverse effects to Abilify reported. Medication Change: No Medical Record Reviewed: Yes Consults ordered or reviewed: Medicine consult Mental Status Examination - Cognitive Function Orientation: Person, Place, Situation, Time Memory: Intact Attention: WNL Concentration: WNL Association: WNL Fund of Knowledge: WNL Decription of patient's judgement and insights: Improving I/J - Mood Mood: Neutral - Affect Affect: Other (Labile) - Speech Speech: Appropriate - Formal Thought Process Formal Thought Process: No Impairment Psychotic Thoughts and Behaviors: Denies acute AH/VH - Suicidal Ideation Suicidal Ideation: No - Homicidal Ideation Homicidal Ideation: No Goal/Treatment Plan - Goal/Treatment Plan Need for Continued Stay: Remain at risks for inpatient hospitalization, Discharge may exacerbated symptoms Progress Toward Problem(s) and Goals/Treatment Plan: Bipolar Disorder w/ Psychotic Features vs Schizoaffective Disorder -Individual and group therapy -Continue Abilify 15 mg PO Daily -Medicine consult -Nicotine patch -Disposition planning Estimated Date of D/C: 02/27/18
[2018-02-25 09:29] VITALS: RESP 18
--- NOTE | 2018-02-25 16:55 | PCM.PYCHPN ---
Psychiatric Progress Note - Psychiatric Progress Note Patient seen today, length of contact: Patient evaluated, case discussed with team, chart reviewed Patient Chief Complaint: pt still feels depressed with flat affect.pt denies hallucinations .pt reports that linda is helping and wants to go home soon Medication Change: No Medical Record Reviewed: Yes Mental Status Examination - Cognitive Function Orientation: Person, Place, Situation, Time Memory: Intact Attention: WNL Concentration: WNL Association: WNL Fund of Knowledge: WNL - Mood Mood: Neutral - Affect Affect: Other (Labile) - Speech Speech: Appropriate - Formal Thought Process Formal Thought Process: No Impairment - Suicidal Ideation Suicidal Ideation: No - Homicidal Ideation Homicidal Ideation: No Goal/Treatment Plan - Goal/Treatment Plan Need for Continued Stay: Remain at risks for inpatient hospitalization, Discharge may exacerbated symptoms Estimated Date of D/C: 02/27/18
--- NOTE | 2018-02-26 11:16 | PCM.PYCHPN ---
Psychiatric Progress Note - Psychiatric Progress Note Patient seen today, length of contact: Patient evaluated, case discussed with team, chart reviewed Patient Chief Complaint: pt is still withdrawn with flat affect.pt denies hallucinations .pt reports that abilify is helping but still has negative symptoms of psychosis and need further stabilization. Medication Change: No Medical Record Reviewed: Yes Mental Status Examination - Cognitive Function Orientation: Person, Place, Situation, Time Memory: Intact Attention: WNL Concentration: WNL Association: WNL Fund of Knowledge: WNL - Mood Mood: Neutral - Affect Affect: Other (Labile) - Speech Speech: Appropriate - Formal Thought Process Formal Thought Process: No Impairment - Suicidal Ideation Suicidal Ideation: No - Homicidal Ideation Homicidal Ideation: No Goal/Treatment Plan - Goal/Treatment Plan Need for Continued Stay: Remain at risks for inpatient hospitalization, Discharge may exacerbated symptoms Progress Toward Problem(s) and Goals/Treatment Plan: will increase abilify to 20 mg daily to stabilize thr depression and negative symptoms of psychosis. will engage pt in therapy and groups. Estimated Date of D/C: 02/27/18
[2018-02-27 10:22] VITALS: BP 110/63; PULSE 84; TEMP 97.9
--- NOTE | 2018-02-27 10:50 | PCM.PYCHDC ---
Mental Status Examination - Mental Status Examination Orientation: Person, Place, Situation, Time Memory: Intact Mood: Neutral Affect: Broad Speech: Appropriate Attention: WNL Concentration: WNL Association: WNL Fund of Knowledge: WNL Formal Thought Process: No Impairment Description of patient's judgement and insight: Improved I/J Psychotic Thoughts and Behaviors: Denies acute AH/VH Suicidal Ideation: No Current Homicidal Ideation?: No Discharge Summary - Discharge Note Reason for Hospitalization: HPI: 27 yo female w/ history of bipolar vs schizoaffective disorder, presented to the ER after she made acute suicidal threats. On interview, patient appears acutely manic, w/ pressured, rapid and tangential speech and flight of ideas. She denies acute suicidal ideation/plan/intent but reports that she does have intermittent thoughts of killing herself and wishes she weren't alive. She reports that she can not sleep at night and does not believe she sleeps more than 3 hours/night. She also reports lack of interest in activities. She reports that her mood fluctuates and she can not control her mood. She reports that she see shadows intermittently and also has auditory hallucinations ; last heard 4 days ago, of laughter, people talking and sounds, such as people walking around. She has been non-compliant with treatment and medications and can not recall what she was previously prescribed. PPHx: H/o bipolar vs schizoaffective disorder; does not recall her past medications; as per chart she has been treated w/ Risperdal and Lexapro in the past. PMHx: As per patient- Lyme Disease, Arthritis, Fibromyalgia, Gout ALL: Morphine (anaphylaxis) SHx: Daughter currently under the care of the father; denies drugs/etoh; smokes 5 cig/day FHx: Sister w/ Bipolar Disorder; Other sister and mother w/ depression and anxiety Consultations:: List each consultation separately and include: 1. Reason for request. 2. Findings. 3. Follow-up Consultations: Medicine consult Summary of Hospital Course include:: 1. Description of specific treatment plan utilized for patients during their course of treatmen. 2. Summarize the time- course for resolution of acute symptoms and/or regressed behaviors. 3. Describe issues identified and worked on during hospitalization. 4. Describe medication utilized. 5. Describe medical problems identified and treated. 6. Reassessment of suicide risk Summary of Hospital Course: Patient was admitted to the psychiatry unit. Individual and group therapy were provided. Patient was stabilized on Abilify. She denies current AH/VH/SI/HI and no longer exhibits symptoms of da. She is psychiatrically stable for discharge with outpatient psychiatric follow-up. - Diagnosis (1) Bipolar disorder with psychotic features Status: Chronic - Final Diagnosis (DSM 5) Condition upon Discharge: STABLE DSM 5: Bipolar Disorder Disposition: HOME/ ROUTINE Follow-up Treatment Plan: Bipolar Disorder w/ Psychotic Features vs Schizoaffective Disorder -Individual and group therapy -Continue Abilify 15 mg PO Daily -Medicine consult -Nicotine patch -Disposition planning Prescriptions/Medication Reconciliation: ARIPiprazole [Abilify] 15 mg PO DAILY #30 tab Nitrofurantoin Macrocrystals [Macrobid] 100 mg PO Q12 #6 cap - Smoking Cessation Smoking Cessation Medication prescribed: Yes Reason for not providing: Prescribed during admission; declined outpatient prescription - Antipsychotic Medications Pt discharged on 2 or more routine antipsychotic medications: No
== END 2018-02-27 11:00 | disposition home or self-care (01) | DRG 885 ==
LOC: H.ER 19:08 → H.ERHOLD 22:06 → H.PSYCH 23:09
PROVIDERS: ATTEND Psychiatry & Neurology Psychiatry
PROC: GZ51ZZZ Individual Psychotherapy, Behavioral (ICD-10-PCS; 2018-02-21)
PROC: GZHZZZZ Group Psychotherapy (ICD-10-PCS; principal; 2018-02-24)
DX: F31.9 Bipolar disorder, unspecified (principal); R45.851 Suicidal ideations; N39.0 Urinary tract infection, site not specified; F41.9 Anxiety disorder, unspecified; J45.909 Unspecified asthma, uncomplicated; M79.7 Fibromyalgia; Z79.899 Other long term (current) drug therapy; Z81.8 Family history of other mental and behavioral disorders; Z91.14 Patient's other noncompliance with medication regimen; Z91.19 Patient's noncompliance with other medical treatment and regimen; M10.9 Gout, unspecified; M19.90 Unspecified osteoarthritis, unspecified site; M54.9 Dorsalgia, unspecified; F17.200 Nicotine dependence, unspecified, uncomplicated; F20.9 Schizophrenia, unspecified

== ENCOUNTER 2018-02-28 09:04 | Emergency (ER) | payer BC ==
[2018-02-28 09:04] VITALS: BMI 20.9
[2018-02-28 09:18] VITALS: TEMP 98.6
--- NOTE | 2018-02-28 10:08 | ED PDOC ---
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 Patient states she has difficulty walking secondary to pain. Patient had gout x1 year ago but states episode was not this severe. Patient used to treat pain with Gabapentin but states her psychiatrist took her off from it because it didn't mix well her psychiatric medications. She also reports having a fever of 102 x2 weeks ago but has since resolved. She took Naproxen but with no relief. She denies any fever, chills, nausea, vomit, diarrhea or abdominal pain. No further medical complaints. PMD: Dr. Osmel Storey Past Medical History Reviewed: Historical Data, Nursing Documentation, Vital Signs Vital Signs: Last Vital Signs Temp 98.6 F 02/28/18 09:17 Pulse 75 02/28/18 12:21 Resp 16 02/28/18 12:21 BP 125/80 02/28/18 12:21 Pulse Ox 99 02/28/18 16:03 - Medical History PMH: Anxiety, Arthritis, Asthma, Bipolar Disorder, Depression, Fibromyalgia, Schizophrenia Denies: Diabetes, Hepatitis, HIV, HTN, Chronic Kidney Disease, Seizures, Sexually Transmitted Disease Other PMH: ovarian cysts - Surgical History Surgical History: No Surg Hx - Family History Family History: States: Unknown Family Hx - Social History Current smoker - smoking cessation education provided: Yes (Light smoker <10 cigarettes. Not daily) Alcohol: None Drugs: Denies - Immunization History Hx Tetanus Toxoid Vaccination: No Hx Influenza Vaccination: No Hx Pneumococcal Vaccination: No - Home Medications Home Medications: Ambulatory Orders Medication Instructions Recorded ARIPiprazole [Abilify] 15 mg PO DAILY #30 tab 02/26/18 Nitrofurantoin Macrocrystals 100 mg PO Q12 #6 cap 02/26/18 [Macrobid] - Allergies Allergies/Adverse Reactions: Allergies Allergy/AdvReac Type Severity Reaction Status Date / Time morphine Allergy RASH Verified 02/20/18 19:46 Review of Systems ROS Statement: Except As Marked, All Systems Reviewed And Found Negative Constitutional: Negative for: Fever, Chills Gastrointestinal: Negative for: Nausea, Vomiting, Abdominal Pain, Diarrhea Musculoskeletal: Positive for: Other (wrist, hand, knees and ankle pain) Physical Exam - Reviewed Nursing Documentation Reviewed: Yes Vital Signs Reviewed: Yes - Physical Exam Appears: Positive for: Non-toxic, No Acute Distress Head Exam: Positive for: ATRAUMATIC, NORMAL INSPECTION, NORMOCEPHALIC Skin: Positive for: Normal Color, Warm, Dry Eye Exam: Positive for: Normal appearance, EOMI, PERRL Neck: Positive for: Painless ROM, Supple Cardiovascular/Chest: Positive for: Regular Rate, Rhythm. Negative for: Murmur Respiratory: Positive for: Normal Breath Sounds. Negative for: Respiratory Distress Gastrointestinal/Abdominal: Positive for: Normal Exam, Soft. Negative for: Tenderness Back: Positive for: Normal Inspection Extremity: Positive for: Normal ROM (upper and lower extremities). 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 Negative for: Motor/Sensory Deficits, Aphasia, Facial Droop - Laboratory Results Result Diagrams: 02/28/18 10:02 02/28/18 10:02 - ECG O2 Sat by Pulse Oximetry: 99 (RA) Pulse Ox Interpretation: Normal Medical Decision Making Medical Decision Making: Time: 09:16 Initial Impression: Whole body pains r/o fibromyalgia flare Initial Plan: --CMP --CBC w/ differential --Toradol 30 mg IV --Reevaluation 11:45 -Labs reviewed and showed no clinical significant abnormalities. 11:52 -Upon provider reevaluation patient is feeling better, is medically stable, and requires no further treatment in the ED at this time. ----- Scribe Attestation: Documented by Jens Knox, acting as a scribe for Paul Baptiste MD. Provider Scribe Attestation: All medical record entries made by the Scribe were at my direction and personally dictated by me. I have reviewed the chart and agree that the record accurately reflects my personal performance of the history, physical exam, medical decision making, and the department course for this patient. I have also personally directed, reviewed, and agree with the discharge instructions and disposition. Disposition - Clinical Impression Clinical Impression: Whole body pain - Patient ED Disposition Is Patient to be Admitted: No Counseled Patient/Family Regarding: Studies Performed, Diagnosis, Need For Followup - Disposition Referrals: [facility] [Outside] [facility] [Outside] Disposition: Routine/Home Disposition Time: 11:20 Condition: IMPROVED Additional Instructions: follow up with your primary doctor in the clinic 1-2 days return to the ED with any worsening or concerning symptoms Instructions: Acute Pain, Adult (DC) Forms: [employer] (Gambian)
[2018-02-28 10:09] LABS: BASO # 0.1 K/uL (0.0-0.2); BASO % 1.1 % (0.0-2.0); EOS # 0.1 K/uL (0.0-0.7); HEMOGLOBIN 12.9 g/dL (12.0-16.0); LYMPH # 2.1 K/uL (1.0-4.3); LYMPH % 36.5 % (20.0-40.0); MEAN CELL VOLUME 88.1 fl (81.0-99.0); MEAN CORPUSCULAR HEMOGLOBIN 29.6 pg (27.0-31.0); MEAN CORPUSCULAR HGB CONC 33.6 g/dL (33.0-37.0); MEAN PLATELET VOLUME 8.6 fl (7.2-11.7); MONO # 0.5 K/uL (0.0-0.8); MONO % 8.9 % (0.0-10.0); NEUT % 51.5 % (50.0-75.0); NRBC % 0.2 % (0.0-0.0); RBC 4.37 Mil/uL (3.80-5.20); WHITE BLOOD COUNT 5.8 K/uL (4.8-10.8)
[2018-02-28 10:28] LABS: ALB/GLOB RATIO 1.1 (1.0-2.1); ALBUMIN 4.5 g/dL (3.5-5.0); ALT/SGPT 17 U/L (9-52); AST/SGOT 25 U/L (14-36); BLOOD UREA NITROGEN 14 mg/dl (7-17); CALCIUM 9.9 mg/dL (8.4-10.2); GFR AFRICAN-AMERICAN > 60; GFR NON-AFRICAN AMERICAN > 60
[2018-02-28 12:22] VITALS: BP 125/80; PULSE 75; RESP 16
[2018-02-28 12:31] LABS: SQUAMOUS EPITHIAL 3 /hpf (0-5); URINE BACTERIA MANY (<OCC); URINE BILIRUBIN NEGATIVE (NEGATIVE); URINE BLOOD SMALL (NEGATIVE); URINE CLARITY SLIGHTY-CLOUDY (Clear); URINE COLOR YELLOW (YELLOW); URINE GLUCOSE (UA) NEG (Normal); URINE LEUKOCYTE ESTERASE TRACE Leu/uL (Negative); URINE PROTEIN NEGATIVE (NEGATIVE); URINE UROBILINOGEN 0.2-1.0 mg/dL (0.2-1.0)
[2018-02-28 16:03] VITALS: O2SAT 99
== END 2018-02-28 12:21 | disposition home or self-care (01) ==
LOC: H.ER 09:04
DX: R52 Pain, unspecified (principal)
CPT/HCPCS: 80053; 81003; 81025; 85025; 87086; 87181; 96374; 99283; J1885

== ENCOUNTER 2018-03-04 01:32 | Emergency (ER) | payer BC ==
[2018-03-04 01:32] VITALS: BMI 20.9
[2018-03-04 01:37] VITALS: BP 116/80; PULSE 91; RESP 16; TEMP 97; O2SAT 100
== END 2018-03-04 02:05 | disposition left against medical advice (07) ==
LOC: H.ER 01:32
DX: Z02.89 Encounter for other administrative examinations (principal)

== ENCOUNTER 2018-04-14 12:37 | Emergency (ER) | payer BC ==
[2018-04-14 12:37] VITALS: BMI 20.9
--- NOTE | 2018-04-14 13:15 | ED PDOC ---
HPI: Abdomen Time Seen by Provider: 04/14/18 12:42 Chief Complaint (Nursing): Abdominal Pain Chief Complaint (Provider): Abdominal pain History Per: Patient Additional Complaint(s): Pt is a 27 yo female, PMH of Bipolar/Schizophrenia, Fibromyalgia and Asthma, currently 5 weeks , presents to ED because of lower abdominal cramping,with mild vaginal bleeding since last night. Pt reports that she does not want the baby so if she is not miscarrying, can we do an . Past Medical History Reviewed: Nursing Documentation, Vital Signs Vital Signs: Last Vital Signs Temp 97.5 F L 04/14/18 16:04 Pulse 78 04/14/18 16:04 Resp 19 04/14/18 16:04 BP 110/78 04/14/18 16:04 Pulse Ox 98 04/14/18 16:04 - Medical History PMH: Anxiety, Arthritis, Asthma, Bipolar Disorder, Depression, Fibromyalgia, Schizophrenia Denies: Diabetes, Hepatitis, HIV, HTN, Chronic Kidney Disease, Seizures, Sexually Transmitted Disease - Family History Family History: States: Unknown Family Hx - Immunization History Hx Tetanus Toxoid Vaccination: No Hx Influenza Vaccination: No Hx Pneumococcal Vaccination: No - Home Medications Home Medications: Ambulatory Orders Medication Instructions Recorded ARIPiprazole [Abilify] 15 mg PO DAILY #30 tab 02/26/18 Nitrofurantoin Macrocrystals 100 mg PO Q12 #6 cap 02/26/18 [Macrobid] - Allergies Allergies/Adverse Reactions: Allergies Allergy/AdvReac Type Severity Reaction Status Date / Time morphine Allergy RASH Verified 04/14/18 12:43 Review of Systems ROS Statement: Except As Marked, All Systems Reviewed And Found Negative Gastrointestinal: Positive for: Abdominal Pain Genitourinary Female: Positive for: Vaginal Bleeding Physical Exam - Reviewed Nursing Documentation Reviewed: Yes Vital Signs Reviewed: Yes - Physical Exam Appears: Positive for: Well, Non-toxic, No Acute Distress Head Exam: Positive for: ATRAUMATIC, NORMAL INSPECTION, NORMOCEPHALIC Skin: Positive for: Normal Color, Warm, DRY Eye Exam: Positive for: EOMI, Normal appearance, PERRL ENT: Positive for: Normal ENT Inspection Neck: Positive for: Normal, Painless ROM Cardiovascular/Chest: Positive for: Regular Rate, Rhythm Respiratory: Positive for: CNT, Normal Breath Sounds Gastrointestinal/Abdominal: Positive for: Normal Exam, Soft Pelvic Exam: Positive for: External Exam Normal. Negative for: No Cerv. Motion Tender, No Masses, Active Bleeding Back: Positive for: Normal Inspection Extremity: Positive for: Normal ROM Neurologic/Psych: Positive for: Alert, Oriented - Laboratory Results Result Diagrams: 04/14/18 13:30 - ECG O2 Sat by Pulse Oximetry: 100 Medical Decision Making Medical Decision Making: Pt educated on protocol and demonstrated full understanding. Given [facility] for follow up All diagnostics reviewed with pt who demonstrated full understanding Advised to follow up with wom[facility] clinic or in ED again for repeat Beta, possibly US. return to ED sooner if at anytime condition worsens Disposition - Clinical Impression Clinical Impression: Threatened - Patient ED Disposition Is Patient to be Admitted: No - Disposition Disposition: Routine/Home Disposition Time: 17:18 Condition: STABLE Instructions: Threatened Miscarriage (DC) Forms: [email or web address] Connect (Japanese) Print Language: HEBREW
[2018-04-14 13:44] LABS: BASO % 0.6 % (0.0-2.0); EOS # 0.1 K/uL (0.0-0.7); HEMOGLOBIN 12.5 g/dL (12.0-16.0); LYMPH # 2.1 K/uL (1.0-4.3); MEAN CELL VOLUME 87.7 fl (81.0-99.0); MEAN CORPUSCULAR HEMOGLOBIN 30.1 pg (27.0-31.0); MEAN CORPUSCULAR HGB CONC 34.3 g/dL (33.0-37.0); MEAN PLATELET VOLUME 9.2 fl (7.2-11.7); MONO # 0.6 K/uL (0.0-0.8); MONO % 8.2 % (0.0-10.0); NEUT # 4.6 K/uL (1.8-7.0); NEUT % 62.2 % (50.0-75.0); RBC 4.16 Mil/uL (3.80-5.20); RED CELL DISTRIBUTION WIDTH 14.5 % (11.5-14.5); WHITE BLOOD COUNT 7.4 K/uL (4.8-10.8)
[2018-04-14 13:45] LABS: SQUAMOUS EPITHIAL 11 /hpf (0-5); URINE BACTERIA FEW (<OCC); URINE BILIRUBIN NEGATIVE (NEGATIVE); URINE BLOOD MODERATE (NEGATIVE); URINE CLARITY CLOUDY (Clear); URINE COLOR YELLOW (YELLOW); URINE GLUCOSE (UA) NEG (Normal); URINE LEUKOCYTE ESTERASE NEG Leu/uL (Negative); URINE PROTEIN 30 mg/dL (NEGATIVE); URINE UROBILINOGEN 0.2-1.0 mg/dL (0.2-1.0)
[2018-04-14 16:05] VITALS: BP 110/78; PULSE 78; RESP 19; TEMP 97.5
[2018-04-14 17:18] VITALS: O2SAT 100
--- NOTE | 2018-04-15 09:34 | US ---
Date of service: 04/14/2018 PROCEDURE: Transvaginal sonogram. HISTORY: pain and bleeding COMPARISON: None TECHNIQUE: FINDINGS: The uterus measures 6.0 x 3.0 x 5.0 centimeters. There is intrauterine sac with a gestation measuring 7 millimeters. There is a yolk sac present. Ovary are within normal limits. IMPRESSION: 7 millimeter intrauterine sac which is too small to characterize. This may represent an early intrauterine . Ectopic is not definitively excluded. Recommend short-term interval follow-up and correlation with beta HCG levels.
== END 2018-04-14 16:05 | disposition home or self-care (01) ==
LOC: H.ER 12:37
DX: O20.0 Threatened abortion (principal); M79.7 Fibromyalgia

== ENCOUNTER 2018-08-06 13:09 | Emergency (ER) | payer BC ==
[2018-08-06 13:09] VITALS: BMI 20.9
--- NOTE | 2018-08-06 14:31 | ED PDOC ---
HPI: Abdomen Time Seen by Provider: 08/06/18 13:40 Chief Complaint (Nursing): Abdominal Pain Chief Complaint (Provider): Abdominal Pain History Per: Patient History/Exam Limitations: no limitations Onset/Duration Of Symptoms: Days (x 1 week) Current Symptoms Are (Timing): Still Present Location Of Pain/Discomfort: Suprapubic Quality Of Discomfort: "Pain" Associated Symptoms: Nausea, Back Pain Additional Complaint(s): 27 year old female presents to the ED with lower abdominal pain and back pain for the last week intermittently associated with nausea. Patient reports pain has been stronger in the last three days, prompting ED visit. She has control injections in her arm every three months but is unsure if she could be . She denies urinary symptoms, vaginal bleeding or discharge, fever, vomiting and diarrhea. PMD: Osmel Storey Abnormal Vaginal Bleeding: No Past Medical History Reviewed: Historical Data, Nursing Documentation, Vital Signs Vital Signs: Last Vital Signs Temp 97.7 F 08/06/18 13:14 Pulse 90 08/06/18 13:14 Resp 18 08/06/18 13:14 BP 115/70 08/06/18 13:14 Pulse Ox 99 08/06/18 13:14 - Medical History PMH: Anxiety, Arthritis, Asthma (Seasonal), Bipolar Disorder, Depression, Fibromyalgia, Schizophrenia Denies: Diabetes, Hepatitis, HIV, HTN, Chronic Kidney Disease, Seizures, Sexually Transmitted Disease - Surgical History Surgical History: No Surg Hx - Family History Family History: States: Unknown Family Hx - Immunization History Hx Tetanus Toxoid Vaccination: No Hx Influenza Vaccination: No Hx Pneumococcal Vaccination: No - Home Medications Home Medications: Ambulatory Orders Medication Instructions Recorded ARIPiprazole [Abilify] 15 mg PO DAILY #30 tab 02/26/18 RX: Nitrofurantoin Macrocrystals 100 mg PO Q12 #6 cap 02/26/18 [Macrobid] Naproxen [Naprosyn] 500 mg PO Q12H #20 tab 08/06/18 - Allergies Allergies/Adverse Reactions: Allergies Allergy/AdvReac Type Severity Reaction Status Date / Time morphine Allergy RASH Verified 04/14/18 12:43 Review of Systems ROS Statement: Except As Marked, All Systems Reviewed And Found Negative Constitutional: Negative for: Fever Cardiovascular: Negative for: Chest Pain Gastrointestinal: Positive for: Nausea, Abdominal Pain. Negative for: Vomiting, Diarrhea Genitourinary Female: Negative for: Dysuria, Frequency, Incontinence, Hematuria, Vaginal Discharge, Vaginal Bleeding Physical Exam - Reviewed Nursing Documentation Reviewed: Yes Vital Signs Reviewed: Yes - Physical Exam Appears: Positive for: No Acute Distress Head Exam: Positive for: ATRAUMATIC, NORMAL INSPECTION, NORMOCEPHALIC Skin: Positive for: Normal Color, Warm, Dry Eye Exam: Positive for: EOMI, Normal appearance, PERRL Neck: Positive for: Normal, Painless ROM, Supple Cardiovascular/Chest: Positive for: Regular Rate, Rhythm. Negative for: Murmur Respiratory: Positive for: Normal Breath Sounds. Negative for: Respiratory Di stress Pulses-Radial (L): 2+ Pulses-Radial (R): 2+ Gastrointestinal/Abdominal: Positive for: Tenderness (suprapubic tenderness). Negative for: Guarding, Rebound Extremity: Positive for: Normal ROM (x 4). Negative for: Deformity Neurologic/Psych: Positive for: Alert, Oriented (x 3). Negative for: Motor/Sensory Deficits - Laboratory Results Result Diagrams: 08/06/18 14:50 08/06/18 14:50 - ECG O2 Sat by Pulse Oximetry: 99 (RA) Pulse Ox Interpretation: Normal Medical Decision Making Medical Decision Makin:52 Impression: pelvic pain and back pain Differential diagnoses include but are not limited to; UTI; r/o , uterine fibroids, ovarian cysts Initial Plan: --CBC --CMP --Urine dip --Toradol 15 mg IM --transvag US Scribe Attestation: Documented by Evelyn Mejia acting as a scribe for Lyle Tellez MD Provider Scribe Attestation: All medical record entries made by the Scribe were at my direction and personally dictated by me. I have reviewed the chart and agree that the record accurately reflects my personal performance of the history, physical exam, medical decision making, and the department course for this patient. I have also personally directed, reviewed, and agree with the discharge instructions and disposition. Disposition - Clinical Impression Clinical Impression: Ovarian cyst - Patient ED Disposition Is Patient to be Admitted: No Counseled Patient/Family Regarding: Studies Performed, Diagnosis - Disposition [facility]] Disposition: Transfer of Care Disposition Time: 16:00 Condition: STABLE Prescriptions: Naproxen [Naprosyn] 500 mg PO Q12H #20 tab Instructions: Ovarian Cysts Patient Signed Over To: Pablo Merino
[2018-08-06 15:02] LABS: BASO # 0.1 K/uL (0.0-0.2); EOS # 0.2 K/uL (0.0-0.7); EOS % 2.6 % (0.0-4.0); HEMOGLOBIN 13.8 g/dL (12.0-16.0); LYMPH # 3.2 K/uL (1.0-4.3); LYMPH % 45.7 % (20.0-40.0); MEAN CELL VOLUME 87.9 fl (81.0-99.0); MEAN CORPUSCULAR HEMOGLOBIN 29.1 pg (27.0-31.0); MEAN CORPUSCULAR HGB CONC 33.1 g/dL (33.0-37.0); MEAN PLATELET VOLUME 8.8 fl (7.2-11.7); MONO # 0.4 K/uL (0.0-0.8); MONO % 5.8 % (0.0-10.0); NEUT # 3.2 K/uL (1.8-7.0); NEUT % 44.9 % (50.0-75.0); NRBC % 0.1 % (0.0-0.0); RBC 4.74 Mil/uL (3.80-5.20); RED CELL DISTRIBUTION WIDTH 14.6 % (11.5-14.5); WHITE BLOOD COUNT 7.1 K/uL (4.8-10.8)
[2018-08-06 15:13] LABS: BLOOD UREA NITROGEN 17 mg/dl (7-17); GFR NON-AFRICAN AMERICAN > 60
--- NOTE | 2018-08-06 17:16 | US ---
Date of service: 08/06/2018 HISTORY: pelvic pain COMPARISON: None available. TECHNIQUE: Transabdominal and transvaginal pelvic ultrasound was performed with longitudinal and transverse images submitted for interpretation. FINDINGS: UTERUS: Measures 7.0 x 4.9 x 3.4 cm. Normal in size and appearance. No fibroid or other mass lesion seen. ENDOMETRIUM: Measures 6.0 mm in diameter. Unremarkable. CERVIX: No cervical abnormality identified. RIGHT OVARY: Measures 1.6 x 1.6 x 1.1 cm. No solid mass. Normal flow. Small cyst seen within the central right ovary measuring 0.5 x 0.5 x 0.4 cm. LEFT OVARY: Measures 1.7 x 1.7 x 1.2 cm. No solid mass. Normal flow. A small cyst is appreciated measure 1.1 x 0.9 x 1.0 cm with arceo appear partially collapsed and potentially reflect partial cyst rupture. Bowel is seen within the left adnexal compartment as well. Similar pattern was seen in prior abdomen and pelvis CT examination (in terms of bowel) in prior abdomen pelvis CT 01/26/2018. FREE FLUID: A physiologic volume of free fluid is seen the cul-de-sac. OTHER FINDINGS: None. IMPRESSION: 1. Partial rupture of a left ovarian cyst is noted with the right ovary harboring a simple cyst. No sonographic pattern that would suggest torsion bilaterally. 2. Physiologic fluid cul-de-sac. Uterus, endometrium and cervix unremarkable.
--- NOTE | 2018-08-06 17:19 | ED PDOC ---
- Laboratory Results Result Diagrams: 08/06/18 14:50 08/06/18 14:50 - ECG O2 Sat by Pulse Oximetry: 99 (RA) Disposition - Clinical Impression Clinical Impression: Ovarian cyst - POA Present On Arrival: None - Disposition [facility]errals[facility] [[facility]] Disposition: Routine/Home Disposition Time: 17:19 Condition: FAIR Prescriptions: Naproxen [Naprosyn] 500 mg PO Q12H #20 tab Instructions: Ovarian Cysts Forms: [employer] Connect (Yakut)
[2018-08-06 17:37] VITALS: BP 104/63; PULSE 91; RESP 20; TEMP 98.6
[2018-08-07 07:36] VITALS: O2SAT 99
== END 2018-08-06 17:37 | disposition home or self-care (01) ==
LOC: H.ER 13:09
DX: N83.209 Unspecified ovarian cyst, unspecified side (principal); Z86.59 Personal history of other mental and behavioral disorders; J45.909 Unspecified asthma, uncomplicated; Z79.3 Long term (current) use of hormonal contraceptives
CPT/HCPCS: 76830; 76856; 80048; 81025; 85025; 96372; 99284; J1885